=== PATIENT | female | born 1940 | race Caucasian/White ===

== ENCOUNTER 2017-12-03 08:21 | Day surgery (SDC) | payer BC ==
--- NOTE | 2017-12-03 06:37 | History and Physical Report ---
DATE: 12/03/2017. CHIEF COMPLAINT AND HISTORY OF CHIEF COMPLAINT: This patient presents with a history of an intractable lumbar postlaminectomy radiculopathy. Due to the failure of therapy, a spinal cord stimulator implant was performed on 2012. Over time, although the system continued to work, she experienced complete destruction of stimulation. Although she had a functional generator, it was not able to generate appropriate stimulation patterns into the appropriate areas. She was given the options to remove or replace, and she opted to replace with a [employer] system. PAST MEDICAL HISTORY: Cardiac disease, gastroesophageal reflux, hypothyroidism , type 2 diabetes. PAST SURGICAL HISTORY: Tonsils and adenoids, breast surgery, hysterectomy. MEDICATIONS ON ADMISSION: To be provided. ALLERGIES: Multiple antibiotics, penicillin, erythromycin, adhesive tape, Demerol, lisinopril, sulfa, Latex. PHYSICAL EXAMINATION: General: Height and weight unavailable. Vital Signs: Not available. HEENT: Within normal limits. Lungs: Clear. Heart: Regular rate and rhythm. Abdomen: Nontender. Musculoskeletal: Examination of the musculoskeletal system shows the incisional sites midline approximating T12. The generator pouch is identified at the right posterior gluteal margin. All of the incisions are intact. Sensory kaur are intact. Her lower extremity component is across both legs. There are no motor or sensory field abnormalities with pain across a 4-5 and a 5 -1 distribution, right greater than left, but bilateral. Ambulation: Assistive device utilized. Neurologic: Cranial nerves are intact. IMPRESSION: 1. POSTLUMBAR LAMINECTOMY SYNDROME, ICD-10 CODE M96.1. 2. RADICULOPATHY, ICD-10 CODE M54.16 AND M54.17. PLAN: The patient is here for removal and replacement of her spinal sandra stimulator internal generator. We will use the existing incisions as much as possible; although lead placement may be somewhat different and may require different incisions. We will consider this procedure outpatient, although an overnight stay will be evaluated. JOB NUMBER: [id number] cc: Abdiel Browning
[~2017-12-03 08:21] MED LIST: ACETAMINOPHEN 1,000 MG/100 ML BTL IV ONE; CLINDAMYCIN 600MG/50ML PREMIX 600 MG/50 ML BAG IVPB ONE; FAMOTIDINE 20MG TABLET PO ONE; MECLIZINE 25 MG TABLET PO ONE; METOCLOPRAMIDE 10 MG TABLET PO ONE
[2017-12-03] MEDS ORDERED: LIDOCAINE 1% W/EPI 1:200,000 MPF 30ML SQ ONE (08:22)
[2017-12-03] MEDS ORDERED: LIDOCAINE 2% MDV (20MG/ML) 20ML VIAL IV ONE (08:22)
[2017-12-03] MEDS ORDERED: HYDROMORPHONE HCL 2 MG/ML VIAL IV ONE (08:22)
[2017-12-03] MEDS ORDERED: MIDAZOLAM HCL 2MG/2ML VIAL IV ONE (08:22)
[2017-12-03] MEDS ORDERED: PROPOFOL 10 MG/ML VIAL IV ONE (08:22)
[2017-12-03] MEDS ORDERED: BUPIVACAINE 0.5% W/EPI MPF 30 ML VIAL IVP ONE (08:22)
[2017-12-03] MEDS ORDERED: FENTANYL PF 100MCG/2ML VIAL IV ONE (08:22)
--- NOTE | 2017-12-06 07:20 | Operative Note - Ferro ---
DATE OF SURGERY: 12/03/17 PREOPERATIVE DIAGNOSES: 1. POST LUMBAR LAMINECTOMY SYNDROME, ICD-10 CODE = M96.1 WITH RADICULOPATHY ICD- 10 CODE = M54.16 AND M54.17. 2. TWO-LEAD SPINAL CORD STIMULATOR INTERNAL GENERATOR NONFUNCTIONAL. OPERATION: 1. INCISION, SUBCUTANEOUS DISSECTION, AND REMOVAL OF TWO SPINAL CORD STIMULATORS IMPLANTED. 2. INCISION, SUBCUTANEOUS DISSECTION, AND REMOVAL OF INTERNAL PULSE GENERATOR RIGHT POSTERIOR GLUTEAL MARGIN. 3. EPIDURAL ACCESS LEFT T12-L1, PLACEMENT OF SPINAL CORD STIMULATOR LEAD 1, A [employer] INFINION 16 WITH 6 ELECTRODES POSITIONED LEFT T6. 4. FLUOROSCOPICALLY-GUIDED EPIDURAL ACCESS LEFT T11-12. PLACEMENT OF SPINAL CORD STIMULATOR LEAD 2, A [employer] INFINION 16 WITH 6 ELECTRODES POSITIONED RIGHT T6. 5. COMPLEX PROGRAMMING LEAD 1 OVER 20 MINUTES FOLLOWED BY COMPLEX PROGRAMMING LEAD 2 OVER 20 MINUTES. 6. REVISION OF PREVIOUS INCISION ANCHORING OF LEAD 1 AND LEAD 2 TO SUPRASPINOUS FASCIA WITH [employer] LOCKING ANCHOR. 7. REVISION OF RIGHT POSTERIOR GLUTEAL POUCH TO ACCOMMODATE GENERATOR IDENTIFIED A [employer] WAVE[employer]. 8. TUNNELING OF LEADS FROM MIDLINE POUCH INTO RIGHT POSTERIOR GLUTEAL MARGIN POUCH, EACH LEAD INTERFACED TO GENERATOR. 9. PLACEMENT OF GENERATOR INTO POUCH SECURING TO POSTERIOR FASCIA WITH NONABSORBABLE SUTURE. PLACEMENT OF LEADS INTO POUCH. CLOSURE OF BOTH INCISIONS VICRYL FOR FASCIA, LAMBERTO FOR SKIN. DRESSING PLACED. 10. COMPLEX PROGRAMMING INTERNAL GENERATOR, HOME USE, TWO STIMULATORS, RECOVERY ROOM, 20 MINUTES. SURGEON: LEONORA SALINAS D.O. ANESTHESIA: LOCAL SEDATION. ANESTHESIA PROVIDER: SHAD URIBE CRNA. INDICATION: This patient presents with a history of intractable lumbar radiculopathy. Due to the failure of all therapy, a spinal cord stimulator implant was performed in 2012. Although initially the system appeared to work, over time there was very little stimulation into the low back. Multiple attempts at reprogramming were unsuccessful. She was given the option to remove or replace; she opted to replace with a [employer] system. PROCEDURE: Intravenous line, vital sign monitoring, IV sedation by Anesthesia, patient position prone. Sterile prep, sterile technique. The incision left and right of the midline for the two previous leads infiltrated, incision made, and subcutaneous dissection was conducted to the two implanted spinal cord stimulators leads. The anchors cut, the suture removed, and each of the two leads was removed intact. At the right posterior gluteal margin generator site, skin infiltrated, incision made, and subcutaneous dissection was conducted and the generator identified and removed along with its connections and anchoring suture. Antibiotic irrigation and Bovie for hemostasis. On the left incision, using a curved axis Epimed needle with [id number], the epidural space at 12-1 was accessed. Using a similar technique, the epidural interspace at 11- 12 was accessed. At 12-1, spinal cord stimulator lead 1, a [employer] Infinion 16 with 6 electrodes positioned left at T6. With the epidural access 11 -12, spinal cord stimulator lead 2, also a [employer] Infinion 16 with 6 electrodes positioned right T6. Complex programming of lead 1 over 20 minutes followed by complex programming of lead 2 over 20 minutes was resulting in complete patterns of stimulation across the back and into the legs; patient indicating we had all the areas of her pain. She was given the option to implant , remove, or continue to program; she opted to implant. Questions repeated with the same response. The skin above and below the needles had already been infiltrated and the incision already been made. The incision was widened for the new leads, the needles removed, and each lead was anchored to the supraspinous fascia with a [employer]. At the right posterior gluteal generator pouch, skin infiltrated and the incision was widened to accommodate the new generator. Antibiotic irrigation and Bovie for hemostasis. A tunneling tool was then used to carry the two leads into the generator pouch and each was lead was interfaced to the generator. The generator was placed in the pouch and secured to the posterior fascia with nonabsorbable suture. The leads were then placed in their own pouch and all three incisions were closed Vicryl for fascia, lamberto for skin. Dressing was placed. She was transported to the Recovery Room, stable, no side-effects from the procedure or the sedation. She was requesting discharge. DISCHARGE INSTRUCTIONS IN THE MORNIN. Sites remain clean and dry. No showering or bathing in any way that would disrupt dressings; if it happens contact the clinic. 2. Standard medications resumed including the antibiotic Levaquin. She will take 500 mg once a day for 14 days. 3. The office will contact the patient at home in the next 24-48 hours to set up an appointment in 7-10 days to evaluate the sites. Until then, the dressing should stay intact, dry. If it should come loose, she is to contact the clinic. She will been seen in the office in 7-10 days. We can check the dressings and remove lamberto. She will continue with the antibiotic, Levaquin, 500 mg as directed for 14 days. All other instructions provided, numbers to contact with problems given. She will be seen in the office to evaluate incisions. . cc: Dr. Blanc JOB NUMBER: [id number] MTDD
--- NOTE | 2017-12-06 12:03 | RADIOLOGY REPORT ---
DATE: 12/03/2017 at 1:16 p.m. EXAM: AP PORTABLE THORACOLUMBAR SPINE. HISTORY: Post spinal cord stimulator implant placement. TECHNIQUE: Single AP supine view of the spine obtained from about the level of T3 down into the lower lumbar level. COMPARISON: AP spine 01/13/2013. FINDINGS: There are again seen to be two leads extending over the spine which extend up to the approximate level of the superior endplate of the body of what is presumed to be T5. Surgical clips in the right upper quadrant of the abdomen again noted. New skin-type lamberto overlying the upper lumbar spine. Battery pack partially seen in the right midabdomen. IMPRESSION: TIPS OF THE SPINAL CORD STIMULATOR IMPLANT LEADS EXTEND UP TO THE LEVEL OF THE SUPERIOR ENDPLATE OF T5 DESCRIBED ABOVE. JOB NUMBER: [id number] MTDD
== END 2017-12-03 14:30 | disposition home or self-care (01) ==
LOC: SUR 08:21
PROVIDERS: ATTEND Pain Medicine Interventional Pain Medicine
DX: M96.1 Postlaminectomy syndrome, not elsewhere classified (principal); M54.16 Radiculopathy, lumbar region; M54.17 Radiculopathy, lumbosacral region; I10 Essential (primary) hypertension; E78.00 Pure hypercholesterolemia, unspecified; E11.9 Type 2 diabetes mellitus without complications; Z79.4 Long term (current) use of insulin; E03.9 Hypothyroidism, unspecified
CPT/HCPCS: 62350; 62362; 01936; 95972; 85002; 72020; J3010; J1170; C1820; C1883